=== PATIENT | female | born 1995 | race Caucasian/White ===

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

== ENCOUNTER 2017-11-13 17:15 | Emergency (ER) | payer BC, OTHER ==
[2017-11-13 18:41] VITALS: BP 141/84
--- NOTE | 2017-11-13 19:15 | UC ---
UC General HPI - HPI Summary HPI Summary: Patient left a tampon in for three days, it did come out on its own but she is worried about infection. also she hs had a could and cough for the past 2 weeks and is wheezing. - History of Current Complaint Chief Complaint: UCGU Stated Complaint: PERSONAL Time Seen by Provider: 11/13/17 18:43 Hx Obtained From: Patient Hx Last Menstrual Period: 11/08/17 Onset/Duration: Sudden Onset, Lasting Weeks Timing: Constant Onset Severity: Moderate Current Severity: Moderate Pain Intensity: 0 Associated Signs & Symptoms: Positive: Cough, Wheezing - Allergy/Home Medications Allergies/Adverse Reactions: Allergies Allergy/AdvReac Type Severity Reaction Status Date / Time No Known Allergies Allergy Verified 11/13/17 18:41 Home Medications: Home Medications Sertraline* [Zoloft*] 75 11/13/17 [History] PMH/Surg Hx/FS Hx/Imm Hx Previously Healthy: Yes - Surgical History Surgical History: None - Family History Known Family History: Positive: Hypertension - Social History Alcohol Use: Weekly Substance Use Type: None Smoking Status (MU): Never Smoked Tobacco Review of Systems Constitutional: Negative Skin: Negative Eyes: Negative ENT: Negative Respiratory: Cough Cardiovascular: Negative Gastrointestinal: Negative Genitourinary: Negative Motor: Negative Neurovascular: Negative Musculoskeletal: Negative Neurological: Negative Psychological: Negative Is Patient Immunocompromised?: No All Other Systems Reviewed And Are Negative: Yes Physical Exam Triage Information Reviewed: Yes Appearance: Well-Appearing, No Pain Distress, Well-Nourished Vital Signs: Initial Vital Signs Temp 98.4 F 11/13/17 18:35 Pulse 82 11/13/17 18:35 Resp 18 11/13/17 18:35 BP 141/84 11/13/17 18:35 Pulse Ox 98 11/13/17 18:35 Vital Signs Reviewed: Yes Eye Exam: Normal ENT: Positive: Pharyngeal erythema, Nasal congestion, TM bulging Dental Exam: Normal Neck exam: Normal Neck: Positive: Supple, Nontender, No Lymphadenopathy Respiratory Exam: Normal Respiratory: Positive: Chest non-tender, No respiratory distress, Wheezing, Inspiration Cardiovascular Exam: Normal Cardiovascular: Positive: RRR, No Murmur, Pulses Normal Abdominal Exam: Normal Abdomen Description: Positive: Nontender, No Organomegaly, Soft Musculoskeletal Exam: Normal Neurological Exam: Normal Psychological Exam: Normal Skin Exam: Normal Course/Dx - Course Course Of Treatment: hx obtained, exam performed ,meds reviewed, patient has no abdominal pain, no vagianl discharge or odor, no fever. she does have URI symptoms with wheezing. - Differential Dx - Multi-Symptom Provider Diagnoses: uri. wheezing Discharge - Discharge Plan Condition: Stable Disposition: HOME Prescriptions: predniSONE TAB* [Deltasone TAB*] 40 mg PO DAILY #14 tab Patient Education Materials: Upper Respiratory Infection (ED) Referrals: Non Staff,Doctor [Primary Care Provider] - Additional Instructions: 1. Take the prednisone as prescribed and increase fluid intake 2. Chance of infection is rare over the other concern. 3. Follow up as needed,
== END 2017-11-13 19:28 | disposition home or self-care (01) ==
LOC: UCCORT 17:15
DX: J06.9 Acute upper respiratory infection, unspecified (principal); R06.2 Wheezing
CPT/HCPCS: 99212; G0463